=== PATIENT | female | born 1995 | race Two or more races ===

== ENCOUNTER 2019-03-13 21:59 | Emergency (ER) | payer SELFPAY ==
[2019-03-13] MEDS ORDERED: ALPRAZolam TAB* 0.5 MG PO ONE (22:59)
--- NOTE | 2019-03-13 22:59 | ED ---
HPI Chest Pain - HPI Summary HPI Summary: Pt is a 23 y/o F presenting to the ED with c/o midsternal chest pain/throat pain since 2100 today, 03/13/2019. Pt reports the pain was mild initially and started as a "vague dull ache". She also notes "throat tightness" and "hypersalivation". Sx have progressively worsened since onset. While provider is in room, pt reports that pain is less severe than previously and describes it as mild at present. Pt denies nausea/diaphoresis/SOB. Pt has a hx of anxiety , patient has been on Zoloft 25mg since November. Pt also has a IUD. Pt states that she had missed her dose Zoloft for 2 days prior to visit. Pt has a FHx of CVA, Arrhythmia, HTN, and DM. Pt denies and PMHx of cardiac distress and any episodes of similar Sx. On triage, pain is rated 5/10, nothing is noted to aggravate/alleviate Sx. - History of Current Complaint Chief Complaint: EDGeneral Time Seen by Provider: 03/13/19 22:45 Hx Obtained From: Patient Onset/Duration: Started Hours Ago, Still Present Time of Onset: 21:00 Timing: Constant, Lasting Hours Initial Severity: Moderate Current Severity: Mild Pain Intensity: 5 Pain Scale Used: 0-10 Numeric Chest Pain Location: Mid Sternal Character: Dull/Aching, Tightness - throat Aggravating Factor(s): Nothing Alleviating Factor(s): Nothing Associated Signs and Symptoms: Positive: Chest Pain, Other: - POSITIVE - "HYPERSALIVATION", THROAT TIGHTNESS. Negative: Shortness of Breath, Diaphoresis , Nausea - Allergy/Home Medications Allergies/Adverse Reactions: Allergies Allergy/AdvReac Type Severity Reaction Status Date / Time No Known Allergies Allergy Verified 03/13/19 22:15 Home Medications: Home Medications Sertraline HCl [Zoloft] mg PO DAILY 03/13/19 [History] PMH/Surg Hx/FS Hx/Imm Hx Sensory History: Denies: Hx Legally Blind, Hx Deafness Opthamlomology History: Denies: Hx Legally Blind EENT History: Denies: Hx Deafness Psychiatric History: Reports: Hx Anxiety Infectious Disease History: No Infectious Disease History: Denies: Traveled Outside the [place] in Last 30 Days - Family History Known Family History: Positive: Cardiac Disease, Hypertension, Diabetes - Social History Alcohol Use: None Substance Use Type: Reports: None Smoking Status (MU): Never Smoked Tobacco Review of Systems Negative: Skin Diaphoresis ENT: Other - POSITIVE - THROAT TIGHTNESS, "HYPERSALIVATION" Positive: Chest Pain Negative: Shortness Of Breath Negative: Nausea All Other Systems Reviewed And Are Negative: Yes Physical Exam - Summary Physical Exam Summary: VITAL SIGNS: Reviewed. GENERAL: Patient is a well-developed and nourished FEMALE who is lying comfortable in the stretcher. Patient is not in any acute respiratory distress. HEAD AND FACE: No signs of trauma. No ecchymosis, hematomas or skull depressions. No sinus tenderness. EYES: PERRLA, EOMI x 2, No injected conjunctiva, no nystagmus. EARS: Hearing grossly intact. Ear canals and tympanic membranes are within normal limits. MOUTH: Oropharynx within normal limits. NECK: Supple, trachea is midline, no adenopathy, no JVD, no carotid bruit, no c- spine tenderness, neck with full ROM CHEST: Symmetric, no tenderness at palpation LUNGS: Clear to auscultation bilaterally. No wheezing or crackles. CVS: Regular rate and rhythm, S1 and S2 present, no murmurs or gallops appreciated. ABDOMEN: Soft, non-tender. No signs of distention. No rebound no guarding, and no masses palpated. Bowel sounds are normal. EXTREMITIES: FROM in all major joints, no edema, no cyanosis or clubbing. NEURO: Alert and oriented x 3. No acute neurological deficits. Speech is normal and follows commands. SKIN: Dry and warm Triage Information Reviewed: Yes Vital Signs On Initial Exam: Initial Vitals Temp Pulse Resp BP Pulse Ox 97.7 F 62 20 133/85 98 03/13/19 22:10 03/13/19 22:10 03/13/19 22:10 03/13/19 22:10 03/13/19 22:10 Vital Signs Reviewed: Yes Diagnostics - Vital Signs Vital Signs Temp Pulse Resp BP Pulse Ox 03/13/19 22:10 97.7 F 62 20 133/85 98 - Laboratory Result Diagrams: 03/13/19 23:38 03/13/19 23:38 Lab Statement: Any lab studies that have been ordered have been reviewed, and results considered in the medical decision making process. - EKG 2230 Cardiac Rate: Bradycardia - 55 BPM EKG Rhythm: Sinus Bradycardia ST Segment: Non-Specific - INFERIOR LEADS Summary of EKG Findings: EKG showed sinus bradycarida with rate of 55 BPM, non- specific ST-T wave changes in inferior leads. Re-Evaluation - Re-Evaluation First Eval Re-Evaluation Time: 00:11 Comment: Results and labs dicussed, pt will be discharged to home. Pt is agreeable Chest Pain Course/Dx - Course Course Of Treatment: Pt is a 23 y/o F presenting to the ED with c/o midsternal chest pain/throat pain since 2100 today, 03/13/2019. Pt reports the pain was mild initially and started as a "vague dull ache". She also notes "throat tightness" and "hypersalivation". Sx have progressively worsened since onset. While provider is in room, pt reports that pain is less severe than previously and describes it as mild at present. Pt denies nausea/diaphoresis/SOB. Pt has a hx of anxiety, patient has been on Zoloft 25mg since November. Pt has a FHx of CVA, Arrhythmia, HTN, and DM. Pt denies any PMHx of cardiac distress and any episodes of similar Sx. Physical Exam is unremarkable. EKG showed sinus bradycarida with rate of 55 BPM, non-specific ST-T wave changes in inferior leads. Pt was given PO 0.5 mg Xanax Tab. Results and labs dicussed, pt will be discharged with Dx of anxiety and atypical CP to home. Pt was given instructions to F/U with PCP within 3 days and return to the ED with any new or worsening symptoms. - Diagnoses Provider Diagnoses: Anxiety, Atypical chest pain Discharge - Sign-Out/Discharge Documenting (check all that apply): Patient Departure - Discharge Patient Received Moderate/Deep Sedation with Procedure: No - Discharge Plan Condition: Stable Disposition: HOME Patient Education Materials: Chest Pain (ED), Anxiety (ED) Referrals: [facility] - Yeison VALLADARES [Primary Care Provider] - 3 Days () Additional Instructions: PLEASE RETURN TO THE ED IMMEDIATELY FOR WORSENING OR CONCERNING SYMPTOMS. F/U WITH PRIMARY CARE PHYSICIAN WITHIN 3 DAYS - Attestation Statements Document Initiated by Scribe: Yes Documenting Scribe: ADITI CHRISTIE Provider For Whom Scribe is Documenting (Include Credential): CAMILLE GREGORY MD Scribe Attestation: I, ADITI ALVAREZ AND LEONIE CHRISTIE , scribed for CAMILLE GREGORY MD on 03/14/19 at 0029. Status of Scribe Document: Ready
[2019-03-13 23:45] LABS: ABS Eosinophils 0.1 10^3/ul (0-0.6); ABS Lymphocytes 3.2 10^3/ul (1.0-4.8); ABS Monocytes 0.5 10^3/ul (0-0.8); ABS Neutrophils 3.9 10^3/ul (1.5-7.7); Eosinophil % 1.9 %; Hematocrit 39 % (35-47); Hemoglobin 13.4 g/dL (12.0-16.0); Lymphocyte % 40.9 %; Mean Corpuscular HGB Conc 34 g/dL (31-36); Mean Corpuscular Hemoglobin 31 pg (27-31); Mean Corpuscular Volume 90 fL (80-97); Mean Platelet Volume 7.7 fL (7.4-10.4); Nucleated Red Blood Cells % 0.1; Platelet Count 264 10^3/uL (150-450); Red Blood Count 4.39 10^6 /uL (3.70-4.87); Red Cell Distribution Width 13 % (10.5-15); White Blood Count 7.8 10^3/uL (3.5-10.8)
[2019-03-14 00:02] LABS: ALT 26 U/L (7-52); AST 21 U/L (13-39); Albumin 4.4 g/dL (3.2-5.2); Albumin/Globulin Ratio 1.5 (1-3); Alkaline Phosphatase 39 U/L (34-104); Anion Gap 6 mmol/L (2-11); BUN/Creatinine Ratio 22.7 (8-20); Blood Urea Nitrogen 15 mg/dL (6-24); CO2 Carbon Dioxide 26 mmol/L (22-32); Calcium 9.5 mg/dL (8.6-10.3); Chloride 104 mmol/L (101-111); EGFR Non-African American 109.1 (>60); Globulin 2.9 g/dL (2-4); Glucose 138 mg/dL (70-100); Potassium 3.7 mmol/L (3.5-5.0); Sodium 136 mmol/L (135-145); Total Protein 7.3 g/dL (6.4-8.9)
[2019-03-14 00:04] LABS: Troponin I 0.01 ng/mL (<0.04)
[2019-03-14 00:08] LABS: HCG Pregnancy < 0.60 mIU/mL
[2019-03-14] MEDS ORDERED: Piperacillin/Tazobac ADVAN(*) 3.375 GM in NS 0.9% 100 ML* 100 ML IVPB ONE (00:14)
[2019-03-14 00:27] VITALS: BP 105/64
== END 2019-03-14 00:26 | disposition home or self-care (01) ==
LOC: ED 21:59
DX: F41.9 Anxiety disorder, unspecified (principal); R07.89 Other chest pain; R94.31 Abnormal electrocardiogram [ECG] [EKG]
CPT/HCPCS: 36415; 80053; 84484; 84702; 85025; 93005; 99282; A9270-GY

== ENCOUNTER 2019-03-23 18:55 | Emergency (ER) | payer OTHER ==
[2019-03-23] MEDS ORDERED: ALPRAZolam TAB* 0.5 MG PO ONE (19:50)
--- NOTE | 2019-03-23 20:30 | ED ---
HPI Chest Pain - HPI Summary HPI Summary: Patient complains of sternal chest pain and throat tightness after taking Zoloft at 1815 tonight. States chest pain has subsided somewhat by the time of arrival here in the ED. History of same chest pain last week after taking Zoloft, was seen here and evaluated here in the ED, diagnosed with atypical chest pain. Patient states it has occurred one more time since that occasion after taking Zoloft it but only lasted 10 minutes and she did not come for evaluation. Patient states pain occurred today after taking Zoloft but is more intense than prior occasions. Has been taking Zoloft daily since November with no incidences of chest pain prior to these 3 episodes. Denies prior history of chest pain or cardiac history. Denies associated SOB, fever, cough, sore throat , N/V/D, abdominal pain, change in urine, change in BM. History of anxiety, but states she just finished her finals and did not feel anxious today. Patient exercises regularly, denies any decrease in endurance or athletic performance recently. Medical history is none. Nonsmoker, denies caffeine, energy drinks, illegal stimulants. - History of Current Complaint Chief Complaint: EDThroatPain Time Seen by Provider: 03/23/19 19:23 Hx Obtained From: Patient Onset/Duration: Started Hours Ago Timing: Constant Initial Severity: Moderate Current Severity: Moderate Pain Intensity: 7 Pain Scale Used: 0-10 Numeric Chest Pain Radiates: No Character: Sharp/Stabbing Alleviating Factor(s): Nothing Associated Signs and Symptoms: Positive: Chest Pain - Allergy/Home Medications Allergies/Adverse Reactions: Allergies Allergy/AdvReac Type Severity Reaction Status Date / Time No Known Allergies Allergy Verified 03/13/19 22:15 PMH/Surg Hx/FS Hx/Imm Hx Endocrine/Hematology History: Denies: Hx Anticoagulant Therapy Cardiovascular History: Denies: Hx Pacemaker/ICD History: Denies: Hx Dialysis Sensory History: Denies: Hx Legally Blind, Hx Deafness Opthamlomology History: Denies: Hx Eye Injury, Hx Legally Blind EENT History: Denies: Hx Deafness Neurological History: Denies: Hx Dementia Psychiatric History: Reports: Hx Anxiety - Immunization History Date of Tetanus Vaccine: utd Date of Influenza Vaccine: fall 2017 Infectious Disease History: No Infectious Disease History: Denies: Traveled Outside the [place] in Last 30 Days - Family History Known Family History: Positive: Cardiac Disease, Hypertension, Diabetes - Social History Alcohol Use: Occasionally Substance Use Type: Reports: None Smoking Status (MU): Never Smoked Tobacco Review of Systems Constitutional: Negative Eyes: Negative Positive: Sore Throat Positive: Chest Pain Respiratory: Negative Gastrointestinal: Negative Genitourinary: Negative Musculoskeletal: Negative Skin: Negative Neurological: Negative Psychological: Normal All Other Systems Reviewed And Are Negative: Yes Physical Exam - Summary Physical Exam Summary: ENT exam unremarkable. Chest pain nonreproducible. Lung sounds clear to auscultation bilaterally. RRR. Abdomen soft nontender. Triage Information Reviewed: Yes Vital Signs On Initial Exam: Initial Vitals Temp Pulse Resp BP Pulse Ox 98.0 F 64 18 122/87 98 03/23/19 18:57 03/23/19 18:57 03/23/19 18:57 03/23/19 18:57 03/23/19 18:57 Vital Signs Reviewed: Yes Appearance: Positive: Well-Appearing Skin: Positive: Warm Head/Face: Positive: Normal Head/Face Inspection Eyes: Positive: Normal ENT: Positive: Normal ENT inspection Neck: Positive: Supple Respiratory/Lung Sounds: Positive: Clear to Auscultation Cardiovascular: Positive: Normal Abdomen Description: Positive: Nontender Musculoskeletal: Positive: Normal Neurological: Positive: Normal Psychiatric: Positive: Normal AVPU Assessment: Alert - [place] Coma Scale Best Eye Response: 4 - Spontaneous Best Motor Response: 6 - Obeys Commands Best Verbal Response: 5 - Oriented Coma Scale Total: 15 Diagnostics - Vital Signs Vital Signs Temp Pulse Resp BP Pulse Ox 03/23/19 20:03 15 03/23/19 18:57 98.0 F 64 18 122/87 98 - Laboratory Lab Statement: Any lab studies that have been ordered have been reviewed, and results considered in the medical decision making process. Chest Pain Course/Dx - Course Course Of Treatment: Patient complains of sternal chest pain and throat tightness after taking Zoloft at 1815 tonight. States chest pain has subsided somewhat by the time of arrival here in the ED. History of same chest pain last week after taking Zoloft, was seen here and evaluated here in the ED, diagnosed with atypical chest pain. Patient states it has occurred one more time since that occasion after taking Zoloft it but only lasted 10 minutes and she did not come for evaluation. Patient states pain occurred today after taking Zoloft but is more intense than prior occasions. Has been taking Zoloft daily since November with no incidences of chest pain prior to these 3 episodes. Denies prior history of chest pain or cardiac history. Denies associated SOB , fever, cough, sore throat, N/V/D, abdominal pain, change in urine, change in BM. History of anxiety, but states she just finished her finals and did not feel anxious today. Patient exercises regularly, denies any decrease in endurance or athletic performance recently. Medical history is none. Nonsmoker , denies caffeine, energy drinks, illegal stimulants. Patient takes Zoloft for anxiety. Physical exam:ENT exam unremarkable. Chest pain nonreproducible. Lung sounds clear to auscultation bilaterally. RRR. Abdomen soft nontender. Vital signs within normal limits. EKG sinus bradycardia, same as prior. Patient states history of bradycardia due to athletic activity. Symptoms improved with Xanax 0.5 mg by mouth. Patient advised to follow-up with primary care regarding possible change in medication. If symptoms persist follow-up with GI for evaluation of esophagus. Patient understands and approves of plan. - Diagnoses Provider Diagnoses: Atypical chest pain Discharge - Sign-Out/Discharge Documenting (check all that apply): Patient Departure Patient Received Moderate/Deep Sedation with Procedure: No - Discharge Plan Condition: Stable Disposition: HOME Patient Education Materials: Chest Pain (ED), Esophageal Spasm (ED) Referrals: No Primary Care Phys,NOPCP [Primary Care Provider] - Will Villalta DO [Doctor of Osteopathy] - Additional Instructions: Follow-up with your primary care. Return to the ED for any new or worsening symptoms. - Billing Disposition and Condition Condition: STABLE Disposition: Home
[2019-03-23 21:22] VITALS: BP 109/75
== END 2019-03-23 21:22 | disposition home or self-care (01) ==
LOC: ED 18:55
DX: R07.89 Other chest pain (principal); R00.1 Bradycardia, unspecified; F41.9 Anxiety disorder, unspecified
CPT/HCPCS: 93005; 99282; A9270-GY